=== PATIENT | female | born 1970 | race Caucasian/White ===

== ENCOUNTER 2017-08-16 21:47 | Emergency (ER) | payer BC, OTHER ==
--- NOTE | 2017-08-16 23:37 | RAD ---
LEFT ANKLE THREE VIEWS: HISTORY: Post-traumatic pain. COMPARISON: None. FINDINGS: Ankle mortise is intact. No fracture. No significant soft tissue swelling. IMPRESSION: No post-traumatic change. POS: [facility]
--- NOTE | 2017-08-16 23:39 | RAD ---
THREE VIEWS LEFT FOOT: HISTORY: Injury. Pain. COMPARISON: None. FINDINGS: Lisfranc alignment is maintained. Joint spaces are preserved. Mildly displaced obliquely oriented f racture around the distal third metatarsal diaphysis. No interarticular extension. IMPRESSION: Third digit fracture. POS: [facility]
== END 2017-08-16 23:48 | disposition home or self-care (01) ==
LOC: MADERS 21:47
DX: S92.332A Displaced fracture of third metatarsal bone, left foot, initial encounter for closed fracture (principal); G43.909 Migraine, unspecified, not intractable, without status migrainosus; Z79.899 Other long term (current) drug therapy; W17.89XA Other fall from one level to another, initial encounter
CPT/HCPCS: 29515

== ENCOUNTER 2021-08-10 20:59 | Emergency (ER) | payer OTHER ==
[2021-08-10] MEDS ORDERED: Ondansetron PF 4 MG/2 ML Vial ONE (23:37)
[2021-08-10] MEDS ORDERED: Sodium Chloride 0.9% 1,000 ML ONE (23:37)
[2021-08-11 00:05] LABS: #Basophils 0.1 thou/uL (0.0-0.2); #Lymphocytes 0.8 thou/uL (1.20-3.40); #Monocytes 0.5 thou/uL (0.11-0.59); #Neutrophils 10.7 thou/uL (1.40-6.50); %Basophils 0.4 % (0.0-1.0); %Eosinophils 0.1 % (0.0-10.0); %Lymphocytes 6.9 % (21.0-51.0); %Monocytes 4.2 % (0.0-10.0); %Neutrophils 88.4 % (42.0-75.0); Hemoglobin 14.3 g/dL (12.0-16.0); Mean Corpuscular HGB CONC 32.1 g/dL (32.0-36.0); Mean Corpuscular Hemoglobin 29.3 pg (27.0-31.0); Mean Corpuscular Volume 91.4 fL (78.0-98.0); Mean Platelet Volume 6.9 fL (7.4-10.4); Platelet Count 281 thou/uL (130-400); RBC Distribution Width 12.1 % (11.5-14.5); Red Blood Cell (RBC) Count 4.89 mill/uL (4.20-5.40); White Blood Cell (WBC) Count 12.1 thou/uL (4.8-10.8)
[2021-08-11 00:24] LABS: ALT (SGPT) 17 U/L (8-55); AST (SGOT) 15 U/L (5-34); Albumin 3.9 g/dL (3.5-5.0); Alkaline Phosphatase 64 U/L (40-110); Anion Gap 7 mmol/L (10-20); BUN (Urea Nitrogen) 17 mg/dL (9.8-20.1); Bilirubin, Total 0.4 mg/dL (0.2-1.2); Calc. Creatinine Clearance 0 mL/min (70-130); Calcium 9.2 mg/dL (7.8-10.44); Carbon Dioxide 26 mmol/L (22-29); Chloride 107 mmol/L (98-107); Globulin 3.1 g/dL (2.4-3.5); Glucose 116 mg/dL (70-105); Lipase 13 U/L (8-78); Potassium 3.3 mmol/L (3.5-5.1); Sodium 137 mmol/L (136-145)
[2021-08-11 01:11] LABS: Bilirubin Negative (Negative); Blood, Urine Negative (Negative); Clarity Clear (Clear); Glucose, Urine (Dipstick) Negative (Negative); Ketone, Urine 15 mg/dL (Negative); Leukocyte Negative (Negative); Nitrite Negative (Negative); Protein, Urine (Dipstick) Negative (Neg-Trace); Specific Gravity, Urine 1.025 (1.005-1.030); Urobilinogen 0.2 mg/dL (Less than 2); pH, Urine 6.5 (5.0-9.0)
[2021-08-11 19:49] LABS: SARS-CoV-2 PCR by NAA Not Detected (NotDetected)
== END 2021-08-11 01:45 | disposition home or self-care (01) ==
LOC: MADERS 20:59
DX: B34.9 Viral infection, unspecified (principal); Z20.822 Contact with and (suspected) exposure to COVID-19; G43.909 Migraine, unspecified, not intractable, without status migrainosus
CPT/HCPCS: 80053; 81003; 83605; 83690; 85025; 87804; 96374; J2405; J7050; U0003; U0005